=== PATIENT | female | born 1990 ===

== ENCOUNTER 2023-06-16 18:19 | Inpatient (IN) | payer OTHER ==
[~2023-06-16] VITALS: Ht 149.9 cm; Wt 65.0 kg
[2023-06-16] MEDS ORDERED: BUDESONIDE1 MG/2 M1 INH (19:04)
[2023-06-16 19:06] LABS: BASOPHILS ABSOLUTE AUTO 0.03 K/mm3 (0.00-0.23); BASOPHILS PERCENT AUTO 0 % (0-2); EOSINOPHILS ABSOLUTE AUTO 0.03 K/mm3 (0.00-0.68); EOSINOPHILS PERCENT AUTO 0 % (0-6); Hematocrit 35.7 % (33.0-51.0); Hemoglobin 12.5 g/dL (11.5-16.0); IMMATURE GRAN ABSOLUTE AUTO 0.14 K/mm3 (0.00-0.10); IMMATURE GRAN PERCENT AUTO 1 % (0-1); LYMPHOCYTES ABSOLUTE AUTO 1.56 K/mm3 (0.84-5.20); LYMPHOCYTES PERCENT AUTO 8 % (21-46); MONOCYTES ABSOLUTE AUTO 1.65 K/mm3 (0.16-1.47); MONOCYTES PERCENT AUTO 9 % (4-13); Mean Corpuscular HGB 30.8 pg (26.0-34.0); Mean Corpuscular Volume 88 fL (80-100); NEUTROPHILS ABSOLUTE AUTO 15.62 K/mm3 (1.96-9.15); NEUTROPHILS PERCENT AUTO 82 % (41-73); Platelet Count 183 K/mm3 (150-400); RDW Coefficient Variation 13.7 % (11.7-14.2); Red Blood Cell Count 4.06 M/mm3 (3.80-5.20); White Blood Cell Count 19.03 K/mm3 (4.00-11.30)
[2023-06-16 19:13] VITALS: BP 114/60
[2023-06-16 22:09] VITALS: BP 123/61
[2023-06-17] VITALS (13 sets, daily range): BP systolic 94–127; BP diastolic 49–76
[2023-06-18 08:29] VITALS: BP 116/58
[2023-06-18] MEDS ORDERED: IBU600 M1 PO (09:39)
[2023-06-18] MEDS ORDERED: [UNRECOGNIZED DRUG - REMARK] (09:40)
[2023-06-18 13:01] LABS: BASOPHILS ABSOLUTE AUTO 0.04 K/mm3 (0.00-0.23); BASOPHILS PERCENT AUTO 0 % (0-2); EOSINOPHILS ABSOLUTE AUTO 0.12 K/mm3 (0.00-0.68); EOSINOPHILS PERCENT AUTO 1 % (0-6); Hematocrit 34.4 % (33.0-51.0); Hemoglobin 11.6 g/dL (11.5-16.0); IMMATURE GRAN ABSOLUTE AUTO 0.04 K/mm3 (0.00-0.10); IMMATURE GRAN PERCENT AUTO 0 % (0-1); LYMPHOCYTES ABSOLUTE AUTO 2.48 K/mm3 (0.84-5.20); LYMPHOCYTES PERCENT AUTO 23 % (21-46); MONOCYTES ABSOLUTE AUTO 0.78 K/mm3 (0.16-1.47); MONOCYTES PERCENT AUTO 7 % (4-13); Mean Corpuscular HGB 31.2 pg (26.0-34.0); Mean Corpuscular HGB Conc 33.7 g/dL (31.5-36.5); Mean Platelet Volume 10.6 fL (9.1-12.4); NEUTROPHILS ABSOLUTE AUTO 7.47 K/mm3 (1.96-9.15); NEUTROPHILS PERCENT AUTO 68 % (41-73); Platelet Count 197 K/mm3 (150-400); RDW Coefficient Variation 14.5 % (11.7-14.2); RDW Standard Deviation 48.7 fL (35.1-46.3); Red Blood Cell Count 3.72 M/mm3 (3.80-5.20); White Blood Cell Count 10.93 K/mm3 (4.00-11.30)
[2023-06-18 13:08] VITALS: BP 107/60
[2023-06-18 13:08] LABS: Mean Corpuscular Volume 93 fL (80-100)
--- NOTE | 2023-06-18 13:19 | NUR ---
dc instructions gone over with pt and family all questions answered, bands matched, encouraged to call if has questoins
--- NOTE | 2023-06-18 13:36 | NUR ---
when i got the pp depression assessment, the fob was filling it out, when i said mom had to she reported that he was asking her the questions, but when i watched he was just marking zero, she scored a 1. but she reported those were her answers dc home at 1325
== END 2023-06-18 13:45 | disposition home or self-care (01) | DRG 807 ==
LOC: OBS 18:19 → BC 18:19 → OBS 18:32 → BC 18:33
PROVIDERS: ADMIT Registered Nurse Community Health
PROC: 10E0XZZ Delivery of Products of Conception, External Approach (ICD-10-PCS; principal; 2023-06-16)
PROC: 0HQ9XZZ Repair Perineum Skin, External Approach (ICD-10-PCS; 2023-06-16)
DX: O48.0 Post-term pregnancy (principal); Z37.0 Single live birth; Z88.0 Allergy status to penicillin; Z3A.41 41 weeks gestation of pregnancy; Z88.1 Allergy status to other antibiotic agents; O70.0 First degree perineal laceration during delivery
CPT/HCPCS: 36415; 85025; 86850; 86900; 86901; A9270; J1885; J2590; J3010; J7120

== ENCOUNTER → 2025-02-06 | Outpatient (CLI) | payer OTHER ==
[~2025-02-06] MED LIST: BUDESONIDE1 MG/2 M1 INH; IBU600 M1 PO; [UNRECOGNIZED DRUG - REMARK]
== END ==
LOC: LAB 19:01 → LAB SHORT 19:01
DX: Z34.83 Encounter for supervision of other normal pregnancy, third trimester (principal)
CPT/HCPCS: 87081; 87150

== ENCOUNTER 2025-03-08 09:11 | Inpatient (IN) | payer OTHER ==
[2025-03-08] VITALS (24 sets, daily range): BP systolic 103–158; BP diastolic 60–141
[~2025-03-08] VITALS: Ht 154.9 cm; Wt 70.3 kg
[2025-03-08] MEDS ORDERED: Misoprostol 200 MCG Tab BC PRN (09:35)
[2025-03-08] MEDS ORDERED: Oxytocin 10 Unit / ML Vial IM PRN (09:35)
[2025-03-08] MEDS ORDERED: OXYTOCIN/RINGER'S LACTATE 500 ML IV PRN (09:35)
[2025-03-08] MEDS ORDERED: Acetaminophen 500 MG Tab PO PRN ×2 (09:35→13:15)
[2025-03-08] MEDS ORDERED: Ondansetron HCl 2 MG / ML 2ML Vial IV PRN ×3 (09:35→13:10)
[2025-03-08] MEDS ORDERED: Misoprostol 200 MCG Tab PR PRN (09:35)
[2025-03-08] MEDS ORDERED: Lactated Ringer's 1,000 ML IV PRN (09:35)
[2025-03-08] MEDS ORDERED: Carboprost Tromethamine 250 MCG/ML 1ML Amp IM PRN (09:35)
[2025-03-08] MEDS ORDERED: Calcium Carbonate 500 MG Tab Chew PO SCH (09:35)
[2025-03-08] MEDS ORDERED: Methylergonovine Maleate 0.2MG / ML 1ML Amp IM PRN (09:35)
[2025-03-08] MEDS ORDERED: Tranexamic Acid 100 ML IV SCH (09:40)
[2025-03-08] MEDS ORDERED: FOLI1 PO (10:06)
[2025-03-08] MEDS ORDERED: VITAMIN D31250 MC2 PO (10:08)
[2025-03-08] MEDS ORDERED: VITAMIN E67 MG PO (10:09)
[2025-03-08 11:06] LABS: BASOPHILS ABSOLUTE AUTO 0.06 K/mm3 (0.00-0.23); BASOPHILS PERCENT AUTO 0 % (0-2); EOSINOPHILS ABSOLUTE AUTO 0.06 K/mm3 (0.00-0.68); EOSINOPHILS PERCENT AUTO 0 % (0-6); Hematocrit 42.3 % (33.0-51.0); Hemoglobin 13.4 g/dL (11.5-16.0); IMMATURE GRAN ABSOLUTE AUTO 0.11 K/mm3 (0.00-0.10); IMMATURE GRAN PERCENT AUTO 1 % (0-1); LYMPHOCYTES ABSOLUTE AUTO 3.75 K/mm3 (0.84-5.20); LYMPHOCYTES PERCENT AUTO 22 % (21-46); MONOCYTES ABSOLUTE AUTO 0.89 K/mm3 (0.16-1.47); MONOCYTES PERCENT AUTO 5 % (4-13); Mean Corpuscular HGB 27.9 pg (26.0-34.0); Mean Corpuscular HGB Conc 31.7 g/dL (31.5-36.5); Mean Corpuscular Volume 88 fL (80-100); Mean Platelet Volume 11.1 fL (9.1-12.4); NEUTROPHILS ABSOLUTE AUTO 12.26 K/mm3 (1.96-9.15); NEUTROPHILS PERCENT AUTO 72 % (41-73); Platelet Count 272 K/mm3 (150-400); RDW Coefficient Variation 14.6 % (11.7-14.2); RDW Standard Deviation 46.5 fL (35.1-46.3); White Blood Cell Count 17.13 K/mm3 (4.00-11.30)
[2025-03-08] MEDS ORDERED: FentaNYL Citrate 50 MCG/ML 2 ML Injection ONE ×2 (11:17→12:37)
[2025-03-08] MEDS ORDERED: propofoL 20 ML IV ONE (11:17)
[2025-03-08] MEDS ORDERED: Phenylephrine HCl 100 MCG/ML-NS 10MLSYR (1MG/10ML) ONE (11:29)
[2025-03-08] MEDS ORDERED: Rocuronium Bromide 10 MG/ML 5ML Injection IV ONE (11:33)
[2025-03-08] MEDS ORDERED: SuccINYLCHOLINE Chloride 100 MG/5 ML 5MLSYR ONE (11:33)
[2025-03-08] MEDS ORDERED: Oxytocin 10 Unit / ML Vial ONE (11:33)
[2025-03-08] MEDS ORDERED: CeFAZolin Sodium 1000 mg Vial ONE (11:33)
[2025-03-08] MEDS ORDERED: Metoclopramide HCl 5MG / ML 2ML Vial ONE ×2 (11:34→12:05)
[2025-03-08 11:49] LABS: PO2 Cord - Arterial 22.1 mmHg (16-20); pH Cord - Arterial 6.99 (7.28-7.35)
[2025-03-08 11:52] LABS: PCO2 Cord - Venous 61.2 mmHg (40-50); PO2 Cord - Venous 24.4 mmHg (28-32)
[2025-03-08] MEDS ORDERED: Sugammadex Sodium 200 MG/2ML SDV (100 MG/ML) ONE (12:04)
[2025-03-08] MEDS ORDERED: Ondansetron HCl 2 MG / ML 2ML Vial ONE (12:05)
[2025-03-08] MEDS ORDERED: Ketorolac Tromethamine 30mg Vial ONE (12:05)
[2025-03-08] MEDS ORDERED: Dexamethasone Sod Phos 10 MG/ML 1ML VIAL ONE (12:05)
[2025-03-08] MEDS ORDERED: Albuterol 2.5 MG/3 ML VIAL INH PRN (12:50)
[2025-03-08] MEDS ORDERED: HYDROmorphone HCl/Pf 1MG SYR IV PRN (12:50)
[2025-03-08] MEDS ORDERED: FentaNYL Citrate 50 MCG/ML 2 ML Injection IV PRN ×2 (12:50→12:55)
[2025-03-08] MEDS ORDERED: Morphine Sulfate 4 MG/1 ML Injection IV PRN ×2 (12:50→13:15)
[2025-03-08] MEDS ORDERED: Methylergonovine Maleate 0.2 MG Tab PO PRN (13:10)
[2025-03-08] MEDS ORDERED: Lanolin Cream TOP PRN (13:10)
[2025-03-08] MEDS ORDERED: Simethicone 80 MG Chew PO PRN (13:10)
[2025-03-08] MEDS ORDERED: OXYTOCIN/RINGER'S LACTATE 500 ML IV SCH (13:15)
[2025-03-08] MEDS ORDERED: OxyCODONE HCL 5 MG TAB PO PRN (13:15)
[2025-03-08] MEDS ORDERED: Magnesium Hydroxide Conc 10 ML UDC PO PRN (13:15)
[2025-03-08] MEDS ORDERED: Ketorolac Tromethamine 30mg Vial IV SCH (14:00)
[2025-03-08] MEDS ORDERED: Oxytocin 10 Unit / ML Vial XX ONE ×3 (14:43)
[2025-03-08] MEDS ORDERED: Methylergonovine Maleate 0.2MG / ML 1ML Amp XX ONE (14:43)
[2025-03-08] MEDS ORDERED: Tranexamic Acid 1000 MG/10 ML 10ML Vial (SDV) IV ONE (14:43)
[2025-03-08] MEDS ORDERED: OxyCODONE 5 mg/Acetamin 325 mg TABLET PO PRN (14:55)
[2025-03-08] MEDS ORDERED: Ibuprofen 400 MG Tab PO SCH (16:00)
--- NOTE | 2025-03-08 16:25 | NUR ---
03/08/25 1625 Sonia Rich VIABLE MALE DELIVERED 1122. CORD BLOOD SAMPLE COLLECTED. CORD SEGEMENT FOR CORD GAS SENT WITH RT COLTON BAKER. NO CONSENT SIGNED PRIOR OR TIMEOUT PERFORMED PRIOR TO SURGERY START DUE TO EMERGENCY , GENERAL ANESTHESIA FOR BRADYCARDIA. IODINE SPLASH PREP DONE PRIOR TO INSICISION.
[2025-03-08] MEDS ORDERED: CeFAZolin Sodium 2,000 MG in NS 100 ML IV SCH (19:00)
[2025-03-09 03:58] VITALS: BP 110/68
[2025-03-09 06:46] LABS: BASOPHILS ABSOLUTE AUTO 0.01 K/mm3 (0.00-0.23); BASOPHILS PERCENT AUTO 0 % (0-2); EOSINOPHILS ABSOLUTE AUTO 0.05 K/mm3 (0.00-0.68); EOSINOPHILS PERCENT AUTO 0 % (0-6); Hemoglobin 7.8 g/dL (11.5-16.0); IMMATURE GRAN ABSOLUTE AUTO 0.04 K/mm3 (0.00-0.10); IMMATURE GRAN PERCENT AUTO 0 % (0-1); LYMPHOCYTES PERCENT AUTO 14 % (21-46); MONOCYTES PERCENT AUTO 8 % (4-13); Mean Corpuscular HGB 27.6 pg (26.0-34.0); Mean Corpuscular HGB Conc 32.5 g/dL (31.5-36.5); Mean Corpuscular Volume 85 fL (80-100); Mean Platelet Volume 10.6 fL (9.1-12.4); NEUTROPHILS ABSOLUTE AUTO 9.26 K/mm3 (1.96-9.15); NEUTROPHILS PERCENT AUTO 78 % (41-73); Platelet Count 164 K/mm3 (150-400); RDW Coefficient Variation 14.6 % (11.7-14.2); Red Blood Cell Count 2.83 M/mm3 (3.80-5.20); White Blood Cell Count 11.86 K/mm3 (4.00-11.30)
[2025-03-09 07:25] VITALS: BP 107/64
[2025-03-09] MEDS ORDERED: Ketorolac Tromethamine 30mg Vial IV ONE (07:35)
[2025-03-09] MEDS ORDERED: Sod Ferric Gluc Complx/Sucrose 125 MG in NS 100 ML IV ONE (08:50)
[2025-03-09] MEDS ORDERED: Prenatal Vit/FE Fumarate/FA 1 Tab PO SCH (09:00)
[2025-03-09] MEDS ORDERED: Ibuprofen 400 MG Tab PO SCH (14:00)
[2025-03-09 16:18] VITALS: BP 108/62
[2025-03-09 19:32] VITALS: BP 125/60
[2025-03-09 22:03] LABS: BASOPHILS ABSOLUTE AUTO 0.03 K/mm3 (0.00-0.23); BASOPHILS PERCENT AUTO 0 % (0-2); EOSINOPHILS ABSOLUTE AUTO 0.13 K/mm3 (0.00-0.68); EOSINOPHILS PERCENT AUTO 1 % (0-6); Hematocrit 22.8 % (33.0-51.0); Hemoglobin 7.4 g/dL (11.5-16.0); IMMATURE GRAN ABSOLUTE AUTO 0.05 K/mm3 (0.00-0.10); IMMATURE GRAN PERCENT AUTO 1 % (0-1); LYMPHOCYTES ABSOLUTE AUTO 2.06 K/mm3 (0.84-5.20); LYMPHOCYTES PERCENT AUTO 20 % (21-46); MONOCYTES ABSOLUTE AUTO 0.79 K/mm3 (0.16-1.47); MONOCYTES PERCENT AUTO 8 % (4-13); Mean Corpuscular HGB Conc 32.5 g/dL (31.5-36.5); Mean Corpuscular Volume 86 fL (80-100); Mean Platelet Volume 10.5 fL (9.1-12.4); NEUTROPHILS ABSOLUTE AUTO 7.37 K/mm3 (1.96-9.15); NEUTROPHILS PERCENT AUTO 71 % (41-73); Platelet Count 177 K/mm3 (150-400); RDW Standard Deviation 47.4 fL (35.1-46.3); Red Blood Cell Count 2.64 M/mm3 (3.80-5.20); White Blood Cell Count 10.43 K/mm3 (4.00-11.30)
--- NOTE | 2025-03-09 22:35 | NUR ---
DISCUSSED CBC RESULTS WITH PATIENT/SPOUSE. PATIENT DECLINING BLOOD TRANSFUSION AT THIS TIME. MAY CONSIDER TRANSFUSION IN THE MORNING, OR JUST DO ADDITIONAL IRON INFUSION PLANNED. PATIENT WOULD LIKE TO DISCUSS WITH PHYSICIAN IN THE AM.
[2025-03-09 23:45] VITALS: BP 111/62
[2025-03-10 02:49] VITALS: BP 144/66
[2025-03-10 02:55] VITALS: BP 127/60
[2025-03-10 08:37] VITALS: BP 122/57
[2025-03-10] MEDS ORDERED: Sod Ferric Gluc Complx/Sucrose 125 MG in NS 100 ML IV ONE (09:00)
[2025-03-10] MEDS ORDERED: Percocet 5-3251 EACH PO (10:14)
[2025-03-10 11:37] VITALS: BP 133/71
== END 2025-03-10 11:42 | disposition home or self-care (01) | DRG 788 ==
LOC: OBS 09:11 → BC 09:18 → OBS 09:25 → BC 09:27
PROVIDERS: ADMIT Registered Nurse Community Health
PROC: 10D00Z1 Extraction of Products of Conception, Low, Open Approach (ICD-10-PCS; principal; 2025-03-09)
DX: O48.0 Post-term pregnancy (principal); Z3A.41 41 weeks gestation of pregnancy; Z37.0 Single live birth; O76 Abnormality in fetal heart rate and rhythm complicating labor and delivery; Z88.0 Allergy status to penicillin; O99.52 Diseases of the respiratory system complicating childbirth; J45.909 Unspecified asthma, uncomplicated; Z79.899 Other long term (current) drug therapy; Z79.51 Long term (current) use of inhaled steroids; O77.0 Labor and delivery complicated by meconium in amniotic fluid
CPT/HCPCS: 36415; 82803; 85025; 86850; 86900; 86901; 86923; 99214; A9270; J0330; J0690; J1100; J1885; J2210; J2270; J2371; J2405; J2590; J2704; J2765; J2916; J3010